=== PATIENT | male | born 1940 | race African-American/Black ===

== ENCOUNTER 2019-04-14 06:53 | Inpatient (IN) | payer MEDICARE ==
[2019-04-02 09:18] LABS: HEMATOCRIT 42.1 % (42.0-52.0); HEMOGLOBIN 14.1 gm/dL (14.0-18.0); MCH 28.5 pg (26.0-34.0); MCHC 33.6 g/dL (28.0-37.0); MCV 84.9 fL (80.0-100.0); RBC 4.96 mil/uL (4.50-6.00); RDW-CV 14.3 % (10.5-14.5); WBC 7.1 thou/uL (4.0-11.0)
[2019-04-02 09:22] LABS: URINE BILIRUBIN NEGATIVE (Negative); URINE BLOOD TRACE (Negative); URINE CLARITY CLEAR; URINE COLOR YELLOW; URINE GLUCOSE-RANDOM NEGATIVE (Negative); URINE KETONES NEGATIVE (Negative); URINE LEUKOCYTES-REFLEX NEGATIVE (Negative); URINE NITRITE-REFLEX NEGATIVE (Negative); URINE PROTEIN 1+ (Negative); URINE SPECIFIC GRAVITY <= 1.005 (1.005-1.030); URINE UROBILINOGEN 0.2 E.U./dl (0.2-1.0)
[2019-04-02 09:30] LABS: INR 1.1; PROTIME 10.8 Seconds (9.20-11.50)
[2019-04-02 09:37] LABS: CALCIUM 9.6 mg/dL (8.5-10.1); POTASSIUM 3.8 mmol/L (3.5-5.1); TOTAL BILIRUBIN 0.8 mg/dL (<0.1-1.0); TOTAL PROTEIN 9.1 g/dL (6.4-8.2)
[~2019-04-14] VITALS: Ht 167.6 cm; Wt 72.6 kg
--- NOTE | ~2019-04-14 | OP ---
[facility] [address] [place] [address] OPERATIVE REPORT Name: RAMIRO LIMON Room: [address] M.R.#: [id number] Admission: 04/14/19 Attend Phys: Armand Smith Discharge: Date of : 40 Report #: [id number] THIS REPORT FOR: //name// cc: Emigdio Palm Bruce R. DO ~ THIS REPORT FOR: //name// CC: Emigdio Watts DATE OF SERVICE: 04/14/2019 PREOPERATIVE DIAGNOSIS: Right hip osteoarthritis. POSTOPERATIVE DIAGNOSIS: Right hip osteoarthritis. PROCEDURE: Right total hip arthroplasty. SURGEON: Allen Astorga II, DO. DELIVERER OUTSIDE: VELMA Brown. ANESTHESIA: General endotracheal. ESTIMATED BLOOD LOSS: 400 mL. ANTIBIOTICS: Ancef preoperatively. DRAINS: Medium Hemovac. COMPLICATIONS: None. CONDITION: The patient is stable to recovery room. IMPLANTS: Listed in operative record and progress note. BRIEF HISTORY: The patient was seen in the preoperative area. Preoperative H and P was performed. Site was marked, questions were answered. Risks and benefits were discussed with the patient in detail about surgery. The patient wished to proceed, assuming all risks. DESCRIPTION OF PROCEDURE: The patient was taken to the operative suite and placed supine on the operative table, given appropriate anesthesia. The patient's operative hip was placed in the Erwin table leg siegel and sterilely prepped and draped in supine position. Surgery began by longitudinal incision [facility] [address] [place] [address] OPERATIVE REPORT Name: RAMIRO LIMON Room: [address] ..#: [id number] Admission: 04/14/19 Attend Phys: Armand Smith Discharge: Date of : 40 Report #: [id number] over the anterior portion of the hip. This was carried down to the subcutaneous tissues. A small kendra was made in the tensor fascia and it was then split along its fibers and retracted laterally. An H capsulotomy was then performed and careful hemostasis was obtained with electrocautery and Aquamantys. The head and neck cutting alignment guide was then checked with fluoroscopic guidance. Appropriate cut was made to the head and neck and this was removed. Attention was turned to the acetabulum. Excess labrum was removed. It was then reamed in sequential fashion up to appropriate size. This was shown to have excellent bleeding bone and excellent position on fluoroscopic guidance. The acetabular cup was then malleted into position and secured with cancellous screws. Metal liner was then applied. The patient's leg was then rotated and extended in the Erwin table leg siegel to expose the femur. It was then broached in sequential fashion up to appropriate size. The appropriate neck was then trialed with appropriate head length and showed excellent fit and fill and excellent stability of hip throughout all range of motion. These trials were then removed. The final stem was then malleted into position and the final head and neck was then malleted into position. It was reduced in appropriate fashion, checked with C-arm for appropriate leg length and showed excellent leg length throughout the exam without evidence of dislocation upon range of motion and shuck testing. Wound was then copiously irrigated. Hemostasis was obtained with electrocautery and Aquamantys. Pain cocktail was injected. PRP gel sprayed throughout the internal aspect of the hip and drain was activated. The H capsulotomy was then closed with #1 Vicryl in [id number] fashion. Tensor fascia was closed with #1 Vicryl in running fashion. Skin was closed with 2-0 Vicryl and running 3-0 Monocryl with Dermabond and sterile dressing applied. The patient was transported to recovery room in stable condition. Counts were correct throughout the procedure. By: 57 Allen Astorga II, DO /nt
[~2019-04-14 06:53] MED LIST: LIPITOR40 MG PO; LUMIGAN2.5 M1 OPHTHALMIC; OMEPRAZOLE 20 M20 M1 PO
[2019-04-14 16:00] VITALS: BP 136/58
[2019-04-15] VITALS: BP 96/65
[2019-04-15 04:00] VITALS: BP 145/92
[2019-04-15 04:38] LABS: HEMATOCRIT 34.3 % (42.0-52.0); HEMOGLOBIN 11.5 gm/dL (14.0-18.0); MCH 28.6 pg (26.0-34.0); MCHC 33.6 g/dL (28.0-37.0); MPV 6.6 fl. (7.2-11.1); RBC 4.03 mil/uL (4.50-6.00); RDW-CV 14.2 % (10.5-14.5); WBC 7.6 thou/uL (4.0-11.0)
[2019-04-15 05:00] LABS: CREATININE 0.9 mg/dL (0.6-1.3); POTASSIUM 4.1 mmol/L (3.5-5.1)
[2019-04-15 07:42] VITALS: BP 131/68
[2019-04-15 12:39] VITALS: BP 131/68
[2019-04-15] MEDS ORDERED: DULCOLAX STOOL100 M1 PO (14:07)
[2019-04-15] MEDS ORDERED: PERCOCET PO (14:09)
[2019-04-15] MEDS ORDERED: XARELTO10 M1 PO (14:10)
--- NOTE | 2019-04-17 14:53 | EKG ---
[place] [address] ELECTROCARDIOGRAM REPORT Name: RAMIRO LIMON Room: [address]#: [id number] Admission: 04/14/19 Attend Phys: Yash Watts Discharge: 04/15/19 Date of : 40 Date of Service: 04/02/19 0931 Report #: [id number] THIS REPORT FOR: //name// [facility] Test Date: 2019-04-02 Test Time: 09:31:44 Pat Name: RAMIRO LIMON Department: Room: Gender: M [employer]ience [employer] Manager: : 1940 Requested By: Allen Astorga Order Number: [id number] David MD: Genaro Ortega Measurements Intervals [place] Rate: 105 P: 57 [place]: 148 QRS: 81 QRSD: 93 T: 14 QT: 336 QTc: 445 Interpretive Statements Sinus tachycardia Ventricular premature complex Borderline right axis deviation Consider left ventricular hypertrophy No previous ECG available for comparison Electronically Signed On 04-02-2019 11:21:50 [employer] by Genaro Ortega [email or web address] <ELECTRONICALLY SIGNED> By: Genaro Ortega MD, [facility] 04/02/19 1121 0 0 Genaro Ortega MD, [facility] /EPI
== END 2019-04-15 15:12 | disposition home health service (06) | DRG 470 ==
LOC: M.SUR 06:53 → EDSTATUS 06:56 → M.PRE 06:59 → M.ORTHSURG 08:47 → M.TBA 08:47 → M.PRE 10:17 → M.ORTHSURG 14:43 → M.PRE 15:03 → M.ORTHSURG 04-15 15:12
PROVIDERS: Orthopaedic Surgery; ADMIT Internal Medicine
PROC: 0SR903A Replacement of Right Hip Joint with Ceramic Synthetic Substitute, Uncemented, Open Approach (ICD-10-PCS; principal; 2019-04-14)
DX: M16.11 Unilateral primary osteoarthritis, right hip (principal); E78.5 Hyperlipidemia, unspecified; G47.33 Obstructive sleep apnea (adult) (pediatric); K21.9 Gastro-esophageal reflux disease without esophagitis; D64.9 Anemia, unspecified; E78.00 Pure hypercholesterolemia, unspecified; Z85.46 Personal history of malignant neoplasm of prostate; Z90.79 Acquired absence of other genital organ(s); Z83.3 Family history of diabetes mellitus; Z82.49 Family history of ischemic heart disease and other diseases of the circulatory system; Z79.899 Other long term (current) drug therapy; Z79.01 Long term (current) use of anticoagulants; Z23 Encounter for immunization